=== PATIENT | female | born 1975 | race Caucasian/White ===

== ENCOUNTER 2017-01-28 10:58 | Observation (INO) | payer BC ==
[2017-01-28 12:33] LABS: URINE APPEARANCE CLEAR; URINE BILIRUBIN NEGATIVE (NEGATIVE); URINE BLOOD NEGATIVE (NEGATIVE); URINE COLOR YELLOW; URINE GLUCOSE (UA) NEGATIVE (NEGATIVE); URINE KETONE NEGATIVE (NEGATIVE); URINE LEUKOCYTE ESTERASE NEGATIVE (NEGATIVE); URINE NITRITE NEGATIVE (NEGATIVE); URINE PROTEIN NEGATIVE (NEGATIVE); URINE UROBILINOGEN 0.2 E.U./dL (0.20 - 1.00)
[2017-01-28 12:35] LABS: HCG,QUALITATIVE URINE NEGATIVE (NEGATIVE)
--- NOTE | 2017-01-28 12:47 | Emergency Department Record ---
History of Present Illness - General Chief Complaint: Abdominal Pain Stated Complaint: ABD PAIN RT LOWER/FEVER Time Seen by Provider: 01/28/17 12:46 Source: Patient Mode of Arrival: Ambulatory Limitations: No limitations - History of Present Illness Initial Comments: The patient is here due to a 2 day hx of progressively increasing RLQ AP. The pain is sharp and stabbing and intermittently radiates to the back. She is very nauseated but has not vomited. She also denies any diarrhea but has developed a fever. The patient does have a hx of Crohn's Dz but this is much worse. MD Complaint: Abdominal pain Onset/Timin -: Days(s) Location: RLQ Radiation: Back Severity: Moderate Quality: Aching Consistency: Constant, Getting worse Improves With: Nothing Worsens With: Nothing Associated Symptoms: Chills, Fever, Nausea - Related Data Patient : No Home Medications Medication Instructions Recorded Confirmed Last Taken Certolizumab Pegol [Cimzia] 200 mg SQ ASDIR 01/28/17 01/28/17 01/26/17 Duloxetine HCl [Cymbalta] 30 mg PO DAILY 01/28/17 01/28/17 01/28/17 Fexofenadine HCl [Alisson Allergy] 180 mg PO DAILY 01/28/17 01/28/17 01/28/17 Mesalamine [Pentasa] 1,000 mg PO TID 01/28/17 01/28/17 01/28/17 Montelukast Sodium [Singulair] 10 mg PO QHS 01/28/17 01/28/17 01/27/17 Rabeprazole Sodium [Aciphex] 20 mg PO BID 01/28/17 01/28/17 01/28/17 Allergies Allergy/AdvReac Type Severity Reaction Status Date / Time Cephalosporins Allergy FEVER Verified 01/28/17 12:25 latex Allergy ANAPHYLAXIS Verified 01/28/17 12:25 Sulfa (Sulfonamide Allergy RASH Verified 01/28/17 12:25 Antibiotics) tramadol Allergy FEVER Verified 01/28/17 12:25 Travel Screening - Travel/Exposure Within Last 30 Days Have you traveled within the last 30 days?: No - Travel/Exposure Within Last Year Have you traveled outside the [place] in the last year?: No - Additonal Travel Details Have you been exposed to anyone with a communicable illness?: No - Travel Symptoms Symptom Screening: None Review of Systems Constitutional: Reports: Fever, Malaise. Denies: Chills Eyes: Denies: Eye discharge ENT: Denies: Congestion Respiratory: Denies: Cough Cardiovascular: Denies: Arrhythmia Past Medical History - SOCIAL HISTORY Smoking Status: Never smoker Alcohol Use: Occassional Drug Use: None - RESPIRATORY Hx Respiratory Disorders: Yes Hx Sleep Apnea: Yes - CARDIOVASCULAR Hx Cardio Disorders: No - NEURO Hx Neuro Disorders: No - GI Hx GI Disorders: Yes Hx Crohn's Disease: Yes Hx Reflux: Yes - Hx Genitourinary Disorders: No - ENDOCRINE Hx Endocrine Disorders: No - MUSCULOSKELETAL Hx Musculoskeletal Disorders: Yes Hx Arthritis: Yes - PSYCH Hx Psych Problems: No - HEMATOLOGY/ONCOLOGY Hx Hematology/Oncology Disorders: No Family Medical History Any Significant Family History?: Yes Hx Cancer: Grandparents Hx Diabetes: Father, Mother Hx Heart Disease: Father, Mother, Grandparents Hx HTN: Grandparents Hx Stroke: Grandparents Physical Exam - General General Appearance: Alert, Oriented x3, Cooperative, No acute distress - Head Head exam: Atraumatic, Normocephalic, Normal inspection - Eye Eye exam: Normal appearance, PERRL - Neck Neck exam: Normal inspection, Full ROM. negative: Tenderness - Respiratory Respiratory exam: Normal lung sounds bilaterally. negative: Respiratory distress - Cardiovascular Cardiovascular Exam: Regular rate, Normal rhythm, Normal heart sounds - GI/Abdominal GI/Abdominal exam: Soft, Tenderness (There is significant RLQ tenderness to palpation.). negative: Distended, Rigid - Extremities Extremities exam: Normal inspection, Full ROM, Normal capillary refill. negative: Tenderness Course Vital Signs 01/28/17 12:29 Temperature 102 F H Pulse Rate 98 H Respiratory 18 Rate Blood Pressure 128/75 Pulse Ox 99 - Reevaluation(s) Reevaluation #1: The patient is doing a little better. She is still having the pain though. On exam her temp is improved but she still has RLQ tenderness. I did explain the CT results to her. 01/28/17 14:35 Reevaluation #2: I did discuss the case with Dr. Rubio. Due to the location of the tenderness and lab results we both feel the prudent course of action is to admit the patient to the hospital overnight for monitoring and repeat lab tests. The patient does agree. I then did discuss the case with Dr. Anna and he does agree to the admission. 01/28/17 14:57 Medical Decision Making - Data Complexity MDM Data: Labs Ordered and/or Reviewed, X-Ray Ordered and/or Reviewed - Lab Data Result diagrams: 01/28/17 12:50 01/28/17 12:50 Lab Results 01/28/17 Range/Units 12:30 Urine Color Yellow Urine Appearance Clear Urine pH 6.5 (5.0-8.0) Ur Specific Bouton <= 1.005 (1.002-1.030) Urine Protein Negative (NEGATIVE) Urine Glucose (UA) Negative (NEGATIVE) Urine Ketones Negative (NEGATIVE) Urine Blood Negative (NEGATIVE) Urine Nitrite Negative (NEGATIVE) Urine Bilirubin Negative (NEGATIVE) Urine Urobilinogen 0.2 (0.20 - 1.00) E.U./dL Ur Leukocyte Esterase Negative (NEGATIVE) Urine HCG, Qual Negative (NEGATIVE) - Radiology Data Radiology results: Report reviewed (CT: Neg for Appy, possible retroperitoneal fat stranding.) Disposition Disposition: Admit Clinical Impression: Abdominal pain Qualifiers: Abdominal location: right lower quadrant Qualified Code(s): R10.31 - Right lower quadrant pain Disposition: Still a Patient at [facility] Decision to Admit: Admit from ER Decision to Admit Date: 01/28/17 Decision to Admit Time: 14:59 Accepting Physician: Shoshana Time Discussed w/Accepting Physician: 14:59 Condition: (2) Stable Forms: Patient Portal Access Time of Disposition: 14:59
[2017-01-28] MEDS ORDERED: ONDANSETRON HCL IV 4 MG/2 ML VIAL IV ONE (12:51)
[2017-01-28] MEDS ORDERED: 0.9 % SODIUM CHLORIDE 1,000 ML BAG IV ONE (12:51)
[2017-01-28] MEDS ORDERED: ACETAMINOPHEN 325 MG TAB PO ONE (12:52)
[2017-01-28 13:09] LABS: BASO % 0.3 % (0-6); EOS % 0.2 % (0-6); GRAN % 76.1 % (47-80); HEMOGLOBIN 11.3 gm/dl (11.6-16.0); LYMPH % 11.5 % (16-45); MEAN CELL VOLUME 86.7 fl (81-97); MEAN CORPUSCULAR HEMOGLOBIN 27.2 pg (27-33); MEAN CORPUSCULAR HGB CONC 31.4 g/dl (32-36); MEAN PLATELET VOLUME 9.7 fl (7.4-10.4); MONO % 11.9 % (0-9); PLATELET COUNT 415 K/uL (130-400); RED BLOOD COUNT 4.15 M/uL (3.80-5.40); RED CELL DISTRIBUTION WIDTH 14.5 % (11.5-14.5); WHITE BLOOD COUNT W/O DIFF 14.4 K/uL (4.2-12.2)
[2017-01-28 13:21] LABS: ALBUMIN 4.2 gm/dL (3.5-5.0); ALKALINE PHOSPHATASE 97 U/L (38-126); ALT/SGPT 26 U/L (9-52); AST/SGOT 15 U/L (14-36); BILIRUBIN,TOTAL 0.45 mg/dL (0.2-1.3); BLOOD UREA NITROGEN 8 mg/dL (7-17); CREATININE 0.7 mg/dL (0.52-1.04); EST GLOMERULAR FILTRATION RATE > 60 ml/min; GLUCOSE,RANDOM 95 mg/dL (70-110); LIPASE 17 U/L (23-300); TOTAL PROTEIN 7.9 gm/dL (6.3-8.2)
[2017-01-28] MEDS ORDERED: IBUPROFEN 600 MG TABLET PO ONE (14:51)
[2017-01-28] MEDS ORDERED: KETOROLAC 30 MG/ML VIAL IVP ONE (14:59)
[2017-01-28] MEDS ORDERED: KETOROLAC 30 MG/ML VIAL IVP PRN (15:44)
[2017-01-28] MEDS ORDERED: ONDANSETRON HCL IV 4 MG/2 ML VIAL IVP PRN (15:44)
[2017-01-28] MEDS ORDERED: ACETAMINOPHEN 325 MG TAB PO PRN (16:21)
[2017-01-28] MEDS: 0.9 % SODIUM CHLORIDE 1000ML 1,000 ML IV PRN (20:55)
[2017-01-29] MEDS: 0.9 % SODIUM CHLORIDE 1000ML 1,000 ML IV PRN (05:20)
[2017-01-29 06:30] LABS: BASO % 0.2 % (0-6); EOS % 0.5 % (0-6); GRAN % 69.8 % (47-80); LYMPH % 18.8 % (16-45); MEAN CELL VOLUME 88.4 fl (81-97); MEAN CORPUSCULAR HGB CONC 31.7 g/dl (32-36); MEAN PLATELET VOLUME 9.7 fl (7.4-10.4); MONO % 10.7 % (0-9); PLATELET COUNT 333 K/uL (130-400); RED BLOOD COUNT 3.28 M/uL (3.80-5.40); RED CELL DISTRIBUTION WIDTH 14.5 % (11.5-14.5); WHITE BLOOD COUNT W/O DIFF 9.8 K/uL (4.2-12.2)
[2017-01-29 06:41] LABS: HEMOGLOBIN 9.2 gm/dl (11.6-16.0)
[2017-01-29 06:44] LABS: ANION GAP 6.9 (7-16); BLOOD UREA NITROGEN 8 mg/dL (7-17); CARBON DIOXIDE 24.1 mmol/L (22-30); CREATININE 0.7 mg/dL (0.52-1.04); EST GLOMERULAR FILTRATION RATE > 60 ml/min; GLUCOSE,RANDOM 91 mg/dL (70-110)
--- NOTE | 2017-01-29 07:29 | CT SCAN REPORT ---
EXAM: CT SCAN OF THE ABDOMEN AND PELVIS HISTORY: PATIENT HAS RIGHT LOWER QUADRANT PAIN TIMES TWO DAYS. NO HISTORY OF CANCER. TECHNIQUE: Serial axial CT scan of the abdomen and pelvis was performed at 3.75 mm intervals from the dome of the diaphragm down to the pubic symphysis without the use of intravenous or oral contrast. No comparison CT's are available. FINDINGS: Lung windows of the lung bases demonstrate a nonspecific 3.6 mm nodule within the right lateral lower lobe and 3.6 mm nodule within the left lateral lower lobe. Follow-up CT scan of the chest can be obtained in six months to document stability of these findings. The visualized heart size and contour is within normal limits. The liver demonstrates diffuse fatty infiltration. Size and contour of the liver is within normal limits. No suspicious hepatic lesions are identified. The spleen, pancreas, gallbladder, and bilateral adrenal glands are unremarkable. The contour and caliber of the abdominal aorta and pelvic arteries are within normal limits. There is no CT evidence of retroperitoneal, pelvic, or inguinal lymphadenopathy. Extensive retroperitoneal fat stranding is identified with several subcentimeter lymph nodes. There is mild to moderate bilateral hydronephrosis and mild bilateral hydroureter. The ureters are both deviated medially towards the aorta. These findings in combination with the retroperitoneal fat stranding suggests possible retroperitoneal thyrosis. Clinical correlation is recommended. The bowel gas pattern is nonspecific and nonobstructive. There is no CT evidence of free intraperitoneal fluid or free intraperitoneal air. The appendix is clearly visualized and there is no CT evidence of appendicitis. The urinary bladder is unremarkable. Bone windows demonstrate 7 mm sclerotic lesion within the left pubic symphysis. This finding likely represents a bone island. There is no CT evidence of a fracture or dislocation of the osseous structures of the abdomen and pelvis. IMPRESSION: EXTENSIVE RETROPERITONEAL FAT STRANDING IS IDENTIFIED WITH MEDIAL DEVIATION OF THE BILATERAL URETERS AND MILD TO MODERATE BILATERAL HYDRONEPHROSIS. THESE FINDINGS SUGGEST RETROPERITONEAL FIBROSIS. CLINICAL CORRELATION IS RECOMMENDED. JOB NUMBER: [id number] [facility]
[2017-01-29] MEDS ORDERED: 0.9 % SODIUM CHLORIDE 1000ML 1,000 ML IV PRN (07:30)
[2017-01-29] MEDS ORDERED: PANTOPRAZOLE SODIUM IV 40 MG VIAL IVP SCH (10:00)
[2017-01-29] MEDS ORDERED: LORATADINE 10 MG TABLET PO SCH (10:45)
[2017-01-29] MEDS ORDERED: [UNRECOGNIZED DRUG - OTHER] PO SCH (10:45)
[2017-01-29] MEDS ORDERED: DULOXETINE HCL 30 MG CAPSULE.DR PO SCH (10:45)
[2017-01-29] MEDS ORDERED: METHYLPREDNISOLONE PF 125MG/VIAL IVP ONE (15:34)
[2017-01-29] MEDS ORDERED: MESALAMINE 500 MG CAPSULE.SA PO SCH (16:00)
--- NOTE | 2017-01-29 18:38 | Discharge Note ---
VTE H&P Assessment - Risk for VTE Risk for VTE: Yes Risk Level: Very Low Risk Assessment Date: 01/29/17 Risk Assessment Time: 18:33 VTE Orders Placed or Will Be Placed: No VTE Reason for No Prophylaxis: Not Indicated Discharge Medications - Discharge Medications Prescriptions: Prednisone [Prednisone 20Mg] 20 mg PO BID #10 tab Home Medications: Ambulatory Orders Certolizumab Pegol [Cimzia] 200 mg SQ ASDIR 01/28/17 [Last Taken 01/26/17] Duloxetine HCl [Cymbalta] 30 mg PO DAILY 01/28/17 [Last Taken 01/28/17] Fexofenadine HCl [Alisson Allergy] 180 mg PO DAILY 01/28/17 [Last Taken 01/28/17 ] Mesalamine [Pentasa] 1,000 mg PO TID 01/28/17 [Last Taken 01/28/17] Montelukast Sodium [Singulair] 10 mg PO QHS 01/28/17 [Last Taken 01/27/17] Rabeprazole Sodium [Aciphex] 20 mg PO BID 01/28/17 [Last Taken 01/28/17] Prednisone [Prednisone 20Mg] 20 mg PO BID #10 tab 01/29/17 [Last Taken Unknown] Discharge Note - Date Date of Discharge Note: 01/29/17 Disposition: Home, Self-Care Condition: (2) Stable Additional Instructions: follow up with in 5 to 10 days follow up with Shanthi Dean in one week possibly tomorrow. Return to ED if worse the urologist work out of [facility] Forms: Patient Portal Access Activity at Discharge: Increase Activity as Tolerated Diet at Discharge: Advance to Usual Diet
[2017-01-29] MEDS ORDERED: MONTELUKAST SODIUM 10MG TABLET PO SCH (22:00)
--- NOTE | 2017-01-30 09:01 | History and Physical Report ---
DATE OF ADMISSION: 01/28/2017 This is an observation patient. CHIEF COMPLAINT: Right lower quadrant abdominal pain that started 2 days prior to coming to the Emergency Department yesterday. HISTORY OF CHIEF COMPLAINT: She denies any upper respiratory infectious symptoms, UTI symptoms, no diarrhea, no constipation. She had a temperature of 102 in the emergency department. She was evaluated by Dr. Méndez with a description of sharp, stabbing, intermittent pain which radiates into the back from the right lower quadrant. She is very nauseated, did not vomit, and the patient has a history of Crohn disease and arthritis. MEDICAL HISTORY: She has Crohn disease, sleep apnea, GERD, arthritis. She has allergies and anxiety and depression. SURGICAL HISTORY: Hysterectomy 2013, two C-sections 2006 and 2009, lumbar back surgery, discectomy, laparoscopic surgery in 2013, uterine ablation. CURRENT MEDICATIONS: On admission: 1. Cimzia 200 mg every 2-3 weeks. 2. Pentasa, which is actually also mesalamine, 1000 mg 3 times a day. She has 500 mg pills, she takes 2 of them 3 times a day. 3. Cymbalta 30 mg daily. 4. Aciphex 20 mg b.i.d. 5. Singulair 10 mg at h.s. 6. Alisson 180 mg 24-hour pill once a day. ALLERGIES: Cephalosporins, latex, sulfa, and tramadol. SOCIAL HISTORY: Never smoked. Occasional alcohol use. No illegal drug use. FAMILY HISTORY: Her grandparents had cancer. Father and mother diabetes. Heart disease for the father, mother and grandparents. Hypertension for the grandparents. Stroke for the grandparents. SYSTEMS REVIEW: HEENT: No upper respiratory infection symptoms, cough, cold or congestion. Cardiovascular: No chest pain, palpitations or arrhythmia. Respiratory: No cough, cold or congestion. Gastrointestinal: No nausea, vomiting, diarrhea, black stools, or bloody stools. Genitourinary: No dysuria, hematuria, frequency, or burning on urination. Musculoskeletal: She has arthritis. Neurologic: No CVA, paralysis or paresthesias. Gynecological: No lumps in her breast or abnormal vaginal bleeding. Endocrine: No diabetes or thyroid disease. Integument: No rash, ulcers, change in moles, yellow skin. PHYSICAL EXAMINATION: VITAL SIGNS: Height is 5 feet 4 inches. Weight is 216 pounds. Vital signs are temperature this morning when I saw her, temperature was 98.5. Pulse is 63. Blood pressure is 114/65. Respiratory rate is 16. O2 saturation 96% on room air. Pain level is running 2-4. Her temperature did go up at 4:24 to 100.2. HEENT: Pupils are equal, round and reactive to light and accommodation. Extraocular muscles are intact. Throat is clear. Nose is clear. Tympanic membranes are fleming. NECK: Supple, no jugular venous distention, no hepatojugular reflux, no carotid bruit. Thyroid is smooth. LUNGS: Clear to auscultation and percussion. HEART: Regular rate and rhythm without murmurs, clicks, rubs, or gallops. ABDOMEN: Soft, nontender on palpation. No hepatosplenomegaly, no masses, no tenderness. Bowel sounds are active. No bruits. EXTREMITIES: No pitting edema, no cyanosis, no clubbing. Full range of motion. Peripheral pulses are good. BREASTS: Deferred. GYNECOLOGICAL: Deferred. RECTAL: Deferred. NEUROLOGIC: Cranial nerves II-XII are intact. No gross deficits. Sensation normal. Strength normal. Deep tendon reflexes equal bilateral. Babinski is negative. MENTAL STATUS: Alert and oriented x 3. IMPRESSION: 1. Fever. Unknown origin. 2. Possible viral syndrome. She has been without a fever all through the night. 3. Status post Crohn disease. 4. Status post arthritis. 5. Status post allergies. 6. Status post gastroesophageal reflux disease. PLAN: Surgical consultation with Dr. Rubio. Dr. Rubio called me with his consultation and he felt that he did not see any signs of appendicitis but he thought maybe a trial of Solu-Medrol because of the inflammatory changes in the retroperitoneal area and her Crohn disease she might have connective tissue disorder, and he mentioned that he thought maybe another day of observation would be good to make sure everything is okay. Looking at the CAT scan showing an abnormal CAT scan with mild hydronephrosis bilaterally with the ureters being displaced medially, we will consult Urology to see if they have any thoughts on the abnormal CAT scan. IV fluids cautiously. Repeat a CBC tomorrow. Urology consult for the mild hydronephrosis. Actually, this patient is in observation so I am going to keep them in observation at this point. NORIS
--- NOTE | 2017-01-30 15:49 | Medical Records Consult ---
DATE OF CONSULTATION: 01/29/2017 REASON FOR CONSULTATION: Abdominal pain. HISTORY OF PRESENT ILLNESS: The patient is a 41-year-old female who was admitted to [facility] yesterday with abdominal pain. She stated it happened 2-3 days prior and progressively got worse. She describes it as a sharp, stabbing sensation around her periumbilical region and her right and left lower quadrants. She did have a fever. Denies any diarrhea or constipation. Workup in the ER was done, which did show mild leukocytosis at 14.4. CT scan was done, which was a noncontrast CT scan, which did reveal a normal appendix, a normal terminal ileum, and what it did describe as retroperitoneal fibrosis with bilateral hydronephrosis. She was admitted. This morning she states she feels a bit better; although, she still has some right flank tenderness. She has been afebrile in the hospital. PAST MEDICAL HISTORY: Significant for Crohn disease, GERD. CURRENT MEDICATIONS: She currently takes Cimzia, Cymbalta, Pentasa, Singular, Aciphex. ALLERGIES: Cephalosporin, sulfa, tramadol. SOCIAL HISTORY: Denies any tobacco or alcohol use. PHYSICAL EXAMINATION: Her vital signs are stable, she afibrile. HEART: Regular rate and rhythm. LUNGS: Clear. ABDOMEN: Soft, mildly obese. Minimal right lower quadrant tenderness. There is no guarding or rebound. No rovsing sign. LABORATORY DATA: Repeat labs this morning do reveal a normal white blood cell count. Her creatinine level is normal at 0.7. I did review her CT scan, which revealed the aforementioned mild bilateral hydro as well as retroperitoneal inflammation. IMPRESSION: Abdominal pain, unknown clear etiology. It is possible she could have retroperitoneal fibrosis due to the CT scan as well as bilateral hydronephrosis. This may be related to her underlying inflammatory processes of Crohn disease and inflammatory arthritis. At this point, she needs no surgical intervention; however, IV steroids could be trialed to see if this gives her any relief. I did call Gastroenterology, who has not really heard of a link between Crohn's and the fibrosis. If her renal function worsens, she may need to be transferred for urologic evaluation and potential stenting secondary to the hydro. This was discussed in detail with the admitting physician. Thank you for this referral. NORIS
--- NOTE | 2017-01-30 16:07 | Discharge Summary ---
DATE: 01/29/2017 DISCHARGE DIAGNOSES: 1. Fever of unknown etiology. 2. Viral syndrome. 3. Crohn's exacerbation. 4. Abnormal CT of the abdomen and pelvis with stranding in the retroperitoneal area with medial displacement of the ureters and mild hydronephrosis. ATTENDING PHYSICIAN: Rory Anna DO REASON FOR HOSPITALIZATION: Abdominal pain, right lower quadrant abdominal pain that started 2 days prior to coming to the emergency department. Stabbing sharp pain and immediately radiating to the back. She was very nauseated but not vomiting. No diarrhea. Her urine was negative. Her white count was 14,400 which dropped to 9800. She was admitted to the hospital after a CT scan was done. No signs of appendicitis but she has a history of Crohn's, so she was admitted for evaluation of that and surgical consult with Dr. Rubio. SIGNIFICANT FINDINGS: As stated, the WBC was 14,400 and dropped to 9800. Hemoglobin was 11 and dropped to 9.2 from dilution from hydration. Her urine was negative. The CT scan, as stated above, extensive retroperitoneal fat stranding identified with medial deviation of the bilateral ureters, [id number] bilateral hydronephrosis. These findings suggest retroperitoneal fibrosis. Clinical correlation is recommended. She has had one episode of pyelonephritis in her last. Consultation with Dr. Rubio. He felt it was not appendicitis but maybe Crohn's flare. He suggested Solu-Medrol, which we gave one dose of Solu-Medrol and started on prednisone 20 mg twice a day. The patient is eating and drinking fluids okay. She did have a little flare of fever after 20 minutes after getting the IV Solu-Medrol. She thought it was the Solu-Medrol, which prednisone makes her sweat and get hot whenever she gets it. HOSPITAL COURSE: She has insisted on going home. We were going to keep her another night to watch her to make sure she was stable but with her insistence, we decided to send her home with close followup with her primary doctor, Dr. Tyrone Horton, in 5-10 days. She should return to the ER if she has more problems sooner. [facility] is where the urologists work out of. We will also set up an outpatient appointment with Dr. Fitzgerald, who is the urologist that comes here tomorrow. They possibly could get her in tomorrow as an outpatient. If they cannot fit her in tomorrow, it will have to be the next available appointment. If she gets worse, she should go to [facility] for further evaluation so she could see the urologist sooner. DISCHARGE INSTRUCTIONS: Follow up with Dr. Horton in 5-10 days. Follow up with Dr. Fitzgerald as an outpatient consultation for the abnormal CT scan. Start prednisone 20 mg b.i.d. for 5 days for the Crohn's disease. Diet as tolerated. MTDD
== END 2017-01-29 18:59 | disposition home or self-care (01) ==
LOC: ER 10:58 → MEDSURG 15:37
PROVIDERS: ADMIT Emergency Medicine; ATTEND Emergency Medicine
DX: B34.9 Viral infection, unspecified (principal); K50.90 Crohn's disease, unspecified, without complications; N13.30 Unspecified hydronephrosis
CPT/HCPCS: 74176; 80048; 80076; 81003; 81025; 83690; 85025; 86140; 96374; 96375; 99217; 99220; 99285; C9113; J1885; J2405; J2930; J7030

== ENCOUNTER 2019-04-15 06:18 | Emergency (ER) | payer BC, MEDICAID, OTHER ==
[2019-04-15] MEDS ORDERED: KETOROLAC 30 MG/ML VIAL IVP ONE (06:30)
[2019-04-15] MEDS ORDERED: 0.9 % SODIUM CHLORIDE 1000ML 1,000 ML IV SCH (06:30)
[2019-04-15] MEDS ORDERED: ONDANSETRON HCL IV 4 MG/2 ML VIAL IVP ONE (06:30)
--- NOTE | 2019-04-15 06:36 | Emergency Department Record ---
History of Present Illness - General Chief Complaint: Abdominal Pain Stated Complaint: ABD PAIN Time Seen by Provider: 04/15/19 06:30 Source: Patient Mode of Arrival: Ambulatory Limitations: No limitations - History of Present Illness Initial Comments: 43 yo female presents to ED for evaluation of diffuse abdominal pain symptoms that began approximately 3.5 hours ago, patient awoke with pain symptoms. Patient reports a history of Crohn's and inflammatory arthritis symptoms, was recently taking prednisone for elevated CRP/ESR for an inflammation of her arthritis symptoms. Patient denies fever, chills, hematochezia, or loose stools. Patient does report dysuria symptoms. Patient is s/p atul/hysterecetomy. MD Complaint: Abdominal pain Onset/Timin -: Hour(s) Location: Diffuse Radiation: None Migration to: No migration Severity: Moderate Quality: Cramping Consistency: Constant Improves With: Nothing Worsens With: Nothing Associated Symptoms: Dysuria - Related Data Patient : No Previous Rx's Medication Instructions Recorded Prednisone [Prednisone 20Mg] 20 mg PO BID #10 tab 01/29/17 Allergies Allergy/AdvReac Type Severity Reaction Status Date / Time Cephalosporins Allergy FEVER Verified 04/15/19 06:26 latex Allergy ANAPHYLAXIS Verified 04/15/19 06:26 Sulfa (Sulfonamide Allergy RASH Verified 04/15/19 06:26 Antibiotics) tramadol Allergy FEVER Verified 04/15/19 06:26 Review of Systems Constitutional: Denies: Chills, Fever, Malaise, Night sweats Eyes: Denies: Eye discharge, Eye pain ENT: Denies: Congestion, Ear pain, Epistaxis Respiratory: Denies: Cough, Dyspnea Cardiovascular: Denies: Chest pain, Dyspnea on exertion Endocrine: Denies: Fatigue, Heat or cold intolerance Gastrointestinal: Reports: Abdominal pain, Nausea. Denies: Constipation, Diarrhea, Vomiting Genitourinary: Reports: Dysuria. Denies: Incontinence, Retention Musculoskeletal: Denies: Arthralgia, Back pain Skin: Denies: Bruising, Change in color Neurological: Denies: Abnormal gait, Confusion, Headache, Seizure Psychiatric: Denies: Anxiety Hematological/Lymphatic: Denies: Anemia, Blood Clots Past Medical History - SOCIAL HISTORY Smoking Status: Never smoker Drug Use: None - RESPIRATORY Hx Respiratory Disorders: Yes Hx Sleep Apnea: Yes - CARDIOVASCULAR Hx Cardio Disorders: No - NEURO Hx Neuro Disorders: No - GI Hx GI Disorders: Yes Hx Crohn's Disease: Yes Hx Reflux: Yes - Hx Genitourinary Disorders: No - ENDOCRINE Hx Endocrine Disorders: No - MUSCULOSKELETAL Hx Musculoskeletal Disorders: Yes Hx Arthritis: Yes - PSYCH Hx Psych Problems: No - HEMATOLOGY/ONCOLOGY Hx Hematology/Oncology Disorders: No Family Medical History Hx Cancer: Grandparents Hx Diabetes: Father, Mother Hx Heart Disease: Father, Mother, Grandparents Hx HTN: Grandparents Hx Stroke: Grandparents Physical Exam - General General Appearance: Alert, Oriented x3, Cooperative, Mild distress Limitations: No limitations - Head Head exam: Atraumatic, Normocephalic, Normal inspection Head exam detail: negative: Abrasion, Contusion, Escamilla's sign, General tenderness, Hematoma, Laceration - Eye Eye exam: Normal appearance. negative: Conjunctival injection, Periorbital swelling, Periorbital tenderness, Scleral icterus - ENT Ear exam: negative: Auricular hematoma, Auricular trauma Nasal Exam: negative: Active bleeding, Discharge, Dried blood, Foreign body Mouth exam: negative: Drooling, Laceration, Muffled voice, Tongue elevation - Neck Neck exam: Normal inspection. negative: Meningismus, Tenderness - Respiratory Respiratory exam: Normal lung sounds bilaterally. negative: Rales, Respiratory distress, Rhonchi, Stridor - Cardiovascular Cardiovascular Exam: Regular rate, Normal rhythm, Normal heart sounds - GI/Abdominal GI/Abdominal exam: Soft, Tenderness (Mild-moderate diffuse TTP, no rebound/guarding symptoms are present on examination.). negative: Rebound, Rigid - Rectal Rectal exam: Deferred - exam: Deferred - Extremities Extremities exam: Normal inspection. negative: Pedal edema, Tenderness - Back Back exam: Denies: CVA tenderness (R), CVA tenderness (L) - Neurological Neurological exam: Alert, Normal gait, Oriented X3 - Psychiatric Psychiatric exam: Normal affect, Normal mood - Skin Skin exam: Normal color. negative: Abrasion Type of lesion: negative: abrasion Course - Reevaluation(s) Reevaluation #1: 04/15/19 07:33 Laboratory studies were reviewed and appear grossly unremarkable for an acute process except for the following: Hgb 10.5 CRP 2.65. Patient is currently in CT for imaging of the abdomen and pelvis, has been unable to urinate while in the ED. Reevaluation #2: 04/15/19 08:01 CT result pending, patient reports that she is still unable to urinate. Case was discussed with the oncoming provider, will assume care and disposition at this time. Medical Decision Making - Lab Data Result diagrams: 04/15/19 06:45 04/15/19 06:45 Disposition Forms: Patient Portal Access Quality - Quality Measures Quality Measures: N/A - Blood Pressure Screening Does Patient Have Any of the Following: Active Dx of HTN Blood Pressure Classification: Hypertensive Reading Systolic Measurement: 189 Diastolic Measurement: 93 Screening for High Blood Pressure: Patient Exclusion, Hx of HTN [G9744]
[2019-04-15 07:00] LABS: ABSOLUTE NEUTROPHIL COUNT 8.99; BASO % 0.2 % (0-6); EOS % 1.1 % (0-6); GRAN % 74.8 % (47-80); HEMATOCRIT 33.4 % (35.0-47.0); HEMOGLOBIN 10.5 gm/dl (11.6-16.0); LYMPH % 13.9 % (16-45); MEAN CORPUSCULAR HEMOGLOBIN 26.7 pg (27-33); MEAN CORPUSCULAR HGB CONC 31.4 g/dl (32-36); MEAN PLATELET VOLUME 9.6 fl (7.4-10.4); PLATELET COUNT 252 K/uL (130-400); RED BLOOD COUNT 3.93 M/uL (3.80-5.40); RED CELL DISTRIBUTION WIDTH 16.1 % (11.5-14.5)
[2019-04-15 07:06] LABS: BILIRUBIN,TOTAL 0.3 mg/dL (0.2-1.0); CREATININE 1.1 mg/dL (0.5-0.9)
[2019-04-15 07:11] LABS: ALB/GLOB RATIO 1.3 (1.1-1.8)
[2019-04-15] MEDS ORDERED: 0.9 % SODIUM CHLORIDE 1,000 ML BAG IV ONE (08:05)
[2019-04-15 08:46] LABS: URINE APPEARANCE CLEAR; URINE BILIRUBIN NEGATIVE (NEGATIVE); URINE BLOOD NEGATIVE (NEGATIVE); URINE COLOR YELLOW; URINE GLUCOSE (UA) NEGATIVE (NEGATIVE); URINE KETONE NEGATIVE (NEGATIVE); URINE LEUKOCYTE ESTERASE NEGATIVE (NEGATIVE); URINE NITRITE NEGATIVE (NEGATIVE); URINE PROTEIN NEGATIVE (NEGATIVE); URINE UROBILINOGEN 0.2 E.U./dL (0.20 - 1.00)
--- NOTE | 2019-04-15 09:20 | Emergency Department Record ---
History of Present Illness - General Chief Complaint: Abdominal Pain Stated Complaint: ABD PAIN Time Seen by Provider: 04/15/19 06:30 Source: Patient Mode of Arrival: Ambulatory Limitations: No limitations - History of Present Illness MD Complaint: Abdominal pain Onset/Timin -: Hour(s) Location: Diffuse Radiation: None Migration to: No migration Severity: Moderate Severity scale (1-10): 8 Quality: Cramping Consistency: Constant Improves With: Nothing Worsens With: Nothing Associated Symptoms: Dysuria - Related Data Patient : No Previous Rx's Medication Instructions Recorded Prednisone [Prednisone 20Mg] 20 mg PO BID #10 tab 01/29/17 Allergies Allergy/AdvReac Type Severity Reaction Status Date / Time Cephalosporins Allergy FEVER Verified 04/15/19 06:26 latex Allergy ANAPHYLAXIS Verified 04/15/19 06:26 Sulfa (Sulfonamide Allergy RASH Verified 04/15/19 06:26 Antibiotics) tramadol Allergy FEVER Verified 04/15/19 06:26 Travel Screening - Travel/Exposure Within Last 30 Days Have you traveled within the last 30 days?: No Review of Systems Constitutional: Denies: Chills, Fever, Malaise, Night sweats Eyes: Denies: Eye discharge, Eye pain ENT: Denies: Congestion, Ear pain, Epistaxis Respiratory: Denies: Cough, Dyspnea Cardiovascular: Denies: Chest pain, Dyspnea on exertion Endocrine: Denies: Fatigue, Heat or cold intolerance Gastrointestinal: Reports: Abdominal pain, Nausea. Denies: Constipation, Diarrhea, Vomiting Genitourinary: Reports: Dysuria. Denies: Incontinence, Retention Musculoskeletal: Denies: Arthralgia, Back pain Skin: Denies: Bruising, Change in color Neurological: Denies: Abnormal gait, Confusion, Headache, Seizure Psychiatric: Denies: Anxiety Hematological/Lymphatic: Denies: Anemia, Blood Clots Past Medical History - SOCIAL HISTORY Smoking Status: Never smoker Drug Use: None - RESPIRATORY Hx Respiratory Disorders: Yes Hx Sleep Apnea: Yes - CARDIOVASCULAR Hx Cardio Disorders: No - NEURO Hx Neuro Disorders: No - GI Hx GI Disorders: Yes Hx Crohn's Disease: Yes Hx Reflux: Yes - Hx Genitourinary Disorders: No - ENDOCRINE Hx Endocrine Disorders: No - MUSCULOSKELETAL Hx Musculoskeletal Disorders: Yes Hx Arthritis: Yes - PSYCH Hx Psych Problems: No - HEMATOLOGY/ONCOLOGY Hx Hematology/Oncology Disorders: No Family Medical History Hx Cancer: Grandparents Hx Diabetes: Father, Mother Hx Heart Disease: Father, Mother, Grandparents Hx HTN: Grandparents Hx Stroke: Grandparents Physical Exam - General Limitations: No limitations Course Vital Signs 04/15/19 04/15/19 04/15/19 06:30 08:02 09:10 Temperature 99.0 F Pulse Rate 87 Pulse Rate [ 72 72 Pulse Ox Probe] Respiratory 20 18 20 Rate Blood Pressure 189/93 Blood Pressure 150/88 139/85 [Left Arm] Pulse Ox 99 98 99 - Reevaluation(s) Reevaluation #1: The patient is doing better at this time. Her pain is much improved and is down to a 2-3. 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 Due to the CT results only mainly demonstrating Retroperitoneal Fibrosis and the UA being completely normal without infection I do not believe she has a urine infection. The patient will be discharged on oral pain medicine with instructions to see her doctors later this week or next week. 04/15/19 09:17 Reevaluation #2: The patient is doing a good bit better at this time. Her repeat temp is normal and the repeat BUN and CR are improved. On exam the abdomen is very soft with no significant tenderness in all 4 quads. The patient is to take Tylenol for pain a nd see her In[facility] [employer] for recheck later this week or next week. 04/15/19 10:04 Medical Decision Making - Data Complexity MDM Data: Labs Ordered and/or Reviewed, X-Ray Ordered and/or Reviewed - Lab Data Result diagrams: 04/15/19 06:45 04/15/19 09:38 Lab Results 04/15/19 04/15/19 04/15/19 Range/Units 06:45 06:45 06:45 WBC 12.0 (4.2-12.2) K/uL RBC 3.93 (3.80-5.40) M/uL Hgb 10.5 L (11.6-16.0) gm/dl Hct 33.4 L (35.0-47.0) % MCV 85.0 (81-97) fl MCH 26.7 L (27-33) pg MCHC 31.4 L (32-36) g/dl RDW 16.1 H (11.5-14.5) % Plt Count 252 (130-400) K/uL MPV 9.6 (7.4-10.4) fl Gran % 74.8 (47-80) % Lymphocytes % 13.9 L (16-45) % Monocytes % 10.0 H (0-9) % Eosinophils % 1.1 (0-6) % Basophils % 0.2 (0-6) % Absolute Neutrophils 8.99 ESR 28 H (0-20) mm/hr Sodium 137 (136-145) mmol/L Potassium 4.0 (3.4-4.5) mmol/L Chloride 106 (98-107) mmol/L Carbon Dioxide 19.0 L (22-29) mmol/L Anion Gap 12.0 (7-16) BUN 16 (6-20) mg/dL Creatinine 1.1 H (0.5-0.9) mg/dL Estimated GFR 57 mL/min Random Glucose 102 (74-109) mg/dL Calcium 9.0 (8.6-10.0) mg/dL Total Bilirubin 0.30 (0.2-1.0) mg/dL AST 26 (10.0-35.0) U/L ALT 23 (<33) U/L Alkaline Phosphatase 77 (35-104) U/L C-Reactive Protein (<0.5) mg/dL Total Protein 7.0 (6.6-8.7) g/dL Albumin 4.0 (4.0-5.0) g/dL Globulin 3.0 (1.4-4.8) gm/dL Albumin/Globulin Ratio 1.3 (1.1-1.8) Lipase 19 (13-60) U/L Urine Color Urine Appearance Urine pH (5.0-8.0) Ur Specific [place] (1.002-1.030) Urine Protein (NEGATIVE) Urine Glucose (UA) (NEGATIVE) Urine Ketones (NEGATIVE) Urine Blood (NEGATIVE) Urine Nitrite (NEGATIVE) Urine Bilirubin (NEGATIVE) Urine Urobilinogen (0.20 - 1.00) E.U./dL Ur Leukocyte Esterase (NEGATIVE) Urine HCG, Qual 04/15/19 04/15/19 Range/Units 06:45 08:43 WBC (4.2-12.2) K/uL RBC (3.80-5.40) M/uL Hgb (11.6-16.0) gm/dl Hct (35.0-47.0) % MCV (81-97) fl MCH (27-33) pg MCHC (32-36) g/dl RDW (11.5-14.5) % Plt Count (130-400) K/uL MPV (7.4-10.4) fl Gran % (47-80) % Lymphocytes % (16-45) % Monocytes % (0-9) % Eosinophils % (0-6) % Basophils % (0-6) % Absolute Neutrophils ESR (0-20) mm/hr Sodium (136-145) mmol/L Potassium (3.4-4.5) mmol/L Chloride (98-107) mmol/L Carbon Dioxide (22-29) mmol/L Anion Gap (7-16) BUN (6-20) mg/dL Creatinine (0.5-0.9) mg/dL Estimated GFR mL/min Random Glucose (74-109) mg/dL Calcium (8.6-10.0) mg/dL Total Bilirubin (0.2-1.0) mg/dL AST (10.0-35.0) U/L ALT (<33) U/L Alkaline Phosphatase (35-104) U/L C-Reactive Protein 2.65 H (<0.5) mg/dL Total Protein (6.6-8.7) g/dL Albumin (4.0-5.0) g/dL Globulin (1.4-4.8) gm/dL Albumin/Globulin Ratio (1.1-1.8) Lipase (13-60) U/L Urine Color Yellow Urine Appearance Clear Urine pH 5.5 (5.0-8.0) Ur Specific [place] <= 1.005 (1.002-1.030) Urine Protein Negative (NEGATIVE) Urine Glucose (UA) Negative (NEGATIVE) Urine Ketones Negative (NEGATIVE) Urine Blood Negative (NEGATIVE) Urine Nitrite Negative (NEGATIVE) Urine Bilirubin Negative (NEGATIVE) Urine Urobilinogen 0.2 (0.20 - 1.00) E.U./dL Ur Leukocyte Esterase Negative (NEGATIVE) Urine HCG, Qual Cancelled - Radiology Data Radiology results: Report reviewed (Abd CT: Retroperitoneal Fibrosis, prominence of the renal collections system, possibly slightly worse than the past CT. No signs of infection, obstruction, or Appy.) Disposition Disposition: Discharge Clinical Impression: Abdominal pain Qualifiers: Abdominal location: generalized Qualified Code(s): R10.84 - Generalized abdominal pain Disposition: Home, Self-Care Condition: (2) Stable Instructions: Abdominal Pain (ED) Additional Instructions: Please drink plenty of fluids and use Tylenol for pain. Please see your Specialists in [place] later this week or next week for recheck. Return to the ER for any worsening pain, fever, or vomiting. Forms: Patient Portal Access Time of Disposition: 10:04 Quality - Quality Measures Quality Measures: N/A - Blood Pressure Screening View Details: Yes Does Patient Have Any of the Following: No Blood Pressure Classification: Hypertensive Reading Systolic Measurement: 189 Diastolic Measurement: 93 Screening for High Blood Pressure: < First Hypertensive BP, F/U Documented > [G8950] First Hypertensive Follow-up Interventions: Referral to alternative/primary care provider.
[2019-04-15 09:53] LABS: BLOOD UREA NITROGEN 14 mg/dL (6-20); EST GLOMERULAR FILTRATION RATE > 60 mL/min
--- NOTE | 2019-04-16 05:52 | CT SCAN REPORT ---
EXAM: CT SCAN ABDOMEN/PELVIS W CONTRAST HISTORY: BILATERAL LOWER FLANK PAIN. FATIGUE AND NAUSEA. PRIOR HYSTERECTOMY AND LUMBAR DISCECTOMY. CROHN'S DISEASE HISTORY. GASTROESOPHAGEAL REFLUX. RETROPERITONEAL FIBROSIS. TECHNIQUE: Contrast enhanced helical CT examination of the abdomen and pelvis is performed including delayed images through the kidneys with 100 mL of Omnipaque-300 utilized. COMPARISON: CT abdomen and pelvis without contrast dated 01/28/2017. FINDINGS: There is a 3.5 mm noncalcified nodule redemonstrated in the posterolateral right lower lobe unchanged. Additionally, there is a small, somewhat bilobed nodule in the posterolateral left lower lobe measuring 3.5 mm. This is also not significantly changed given differences in technique. The lung bases are otherwise clear. No pleural or pericardial effusion. The heart is at the upper limits of normal in size. There is mild diffuse decreased density of the liver relative to the spleen consistent with steatosis. There is a small area of sparing in the gallbladder fossa region. No new suspicious focal abnormality within the liver. The gallbladder is unremarkable and no biliary ductal dilatation is seen. The pancreas, spleen, and adrenal glands remain normal in appearance. As demonstrated on the prior examination, there is moderate retroperitoneal fat stranding primarily in the perinephric and upper periaortic regions suspicious for fibrosis. Stranding/edema previously demonstrated in the pelvis has cleared. No new renal mass. The proximal renal collecting systems remains dilated, not significantly changed. There is delay in excretion of contrast into the collecting systems. The proximal ureters appear relatively hyperdense. The etiology of this is uncertain. Ureteral wall thickening would be difficult to exclude. There are several nonenlarged periaortic lymph nodes and lymph nodes in the gastrohepatic ligament/periportal region. The vasculature is normal in caliber. The uterus is surgically absent. No intrinsic urinary bladder abnormality is seen though evaluation is limited by lack of distention. No gross bowel dilatation nor bowel wall thickening. The appendix is visualized and normal in appearance. The ovaries are visualized and nonenlarged. There is likely a dominant follicle within the right ovary measuring 11 mm in diameter. No free intraperitoneal air. No lytic or blastic bone lesion. IMPRESSION: 1. THERE IS REDEMONSTRATION OF MODERATE RETROPERITONEAL FAT STRANDING PRIMARILY IN THE PERINEPHRIC AND PERIAORTIC REGIONS WITH ASSOCIATED MILD MEDIAL DEVIATION OF THE PROXIMAL TO MID URETERS. THESE FINDINGS ARE SUSPICIOUS FOR RETROPERITONEAL FIBROSIS. ACTIVE INFLAMMATION WOULD BE DIFFICULT TO EXCLUDE. THERE IS DELAY IN EXCRETION OF CONTRAST INTO THE RENAL COLLECTING SYSTEMS, WHICH ARE PROMINENT PROXIMALLY. THE URETERS APPEAR SOMEWHAT HYPERDENSE WITH URETERAL WALL THICKENING PROXIMALLY NOT EXCLUDED. CORRELATION WITH RENAL FUNCTION RECOMMENDED. 2. STATUS POST HYSTERECTOMY. 3. HEPATIC STEATOSIS. 4. NORMAL APPENDIX. 5. PROBABLE DOMINANT FOLLICLE IN THE RIGHT OVARY. 6. STABLE BILATERAL LUNG BASE NODULES. JOB NUMBER: [id number] MTDD
== END 2019-04-15 10:13 | disposition home or self-care (01) ==
LOC: ER 06:18
DX: R10.84 Generalized abdominal pain (principal); R30.0 Dysuria; N13.5 Crossing vessel and stricture of ureter without hydronephrosis; I10 Essential (primary) hypertension
CPT/HCPCS: 74177; 80053; 81003; 82565; 83690; 84520; 85025; 85651; 86140; 96374; 96375; 99284; J1885; J2405; J7030